=== PATIENT | female | born 1955 | race Caucasian/White ===

== ENCOUNTER 2019-08-03 14:11 | Emergency (ER) | payer BC ==
--- OUTSIDE RECORDS SUMMARY | 2019-08-03 14:16 | XMS REPORT | Summary of Care ---
:1955 Author Organization [facility] Address [address] [place] [address] Care Team Providers Name Role Phone Jesus Soria MD Primary Care Provider Reason for Referral Refer to Department Only (Routine) Status Reason Specialty Diagnoses / Referred By Referred To Procedures Contact Contact Pending Review Physical Therapy Diagnoses Right knee pain, unspecified chronicity Aba Ellis MD [address] [place] [address] Reason for Visit Reason Comments New Patient Right knee pain. DOI: 1 month. Patient states that she just moved wrong and where she works aggravates it and has been in pain ever since. Encounter Details Date Type Department Care Team Description 07/02/2019 Office Visit [facility] - Aba Ellis MD Right knee pain, [address] unspecified [address] [place] [address] chronicity ([place] [address] [place] [address] Dx) [place] [address] [phone] Allergies No Known Allergiesdocumented as of this encounter (statuses as of 07/02/2019) Medications Medication Sig Dispensed Refills Start Date End Date Status Multiple Vitamin Take by mouth. 0 Active (MULTI-VITAMIN DAILY PO) Calcium Take by mouth. 0 Active Carbonate-Vitamin D (CALCIUM + D PO) Misc Natural Products Take by mouth. 0 Active (DYJYIF-KCLOWGXBO-PBL COMPLEX PO) Magnesium Hydroxide Take by mouth. 0 Active (MAGNESIA PO) TURMERIC PO Take by mouth. 0 Active documented as of this encounter (statuses as of 07/02/2019) Active Problems Problem Noted Date Spinal stenosis of lumbar region with radiculopathy 01/28/2019 Shoulder pain, left 07/31/2013 documented as of this encounter (statuses as of 07/02/2019) Immunizations Name Administration Dates Next Due Depo Medrol (80mg) 01/09/2013 documented as of this encounter Social History Tobacco Use Types Packs/Day Years Used Date Never Smoker Smokeless Tobacco: Never Used Alcohol Use Drinks/Week oz/Week Comments Yes 2 Standard drinks or equivalent 1.7 Sex Assigned at Date Recorded Not on file Job Start Date Occupation Industry Not on file Not on file Not on file Travel History Travel Start Travel End No recent travel history available. documented as of this encounter Last Filed Vital Signs Vital Sign Reading Time Taken Comments Blood Pressure 117/77 07/02/2019 10:54 AM EDT Pulse 62 07/02/2019 10:54 AM EDT Temperature - - Respiratory Rate - - Oxygen Saturation - - Inhaled Oxygen Concentration - - Weight 46.3 kg (102 lb) 07/02/2019 10:54 AM EDT Height 156.2 cm (5' 1.5") 07/02/2019 10:54 AM EDT Body Mass Index 18.96 07/02/2019 10:54 AM EDT documented in this encounter Progress Notes Aba Ellis MD - 07/02/2019 10:40 AM EDTName: Divine Magaña : 1955 Date of Service: 07/02/2019 No chief complaint on file. 63-year-old woman presents with approximately 1 month history of right knee pain primarily about thepatella tendon insertion. She works at [employer] and is often on her feet all day. She does not have mechanical symptoms. Hurts after sitting when she first gets up. Goes to the gym frequently and does a lot of treadmill and elliptical which may be feeding into the symptoms. Also does some light weights including leg extensions. Ibuprofen helps somewhat. She had a left knee partial meniscectomy from Dr. Burgos some years ago. Physical exam shows a healthy-appearing woman in no acute distress. Alert and oriented. Right kneegrossly normal. Skin is normal. No redness or swelling. Full range of motion. Negative patellofemoral apprehension sign. Negative Mariangel sign. No instability. No patella tendon tenderness though this is the area she says where she does get pain. Neurovascular status intact right lower extremity. X-rays of the right knee appear negative. There may possibly be some chondrocalcinosis but I believe this is artifact. Impression: Patella tendinitis right knee. Plan: Physical therapy. She has 3 knee braces from her other knee but they seem to exacerbate the pain. Patella tendon strap. No diagnosis found. Author: Aba Ellis MD 07/02/2019 10:52 This record contains sections created with voice recognition software. It has been electronically signed. A reasonable attempt at proofreading has been made. Please call with any questions or corrections. documented in this encounter Plan of Treatment Name Type Priority Associated Diagnoses Order Schedule REFER TO PHYSICAL Referral Routine Right knee pain, Ordered: 07/02/2019 THERAPY / REHAB unspecified chronicity Health Maintenance Due Date Last Done Comments PAP SMEAR 1955 DEPRESSION SCREENING 1967 HIV SCREENING 11/18/1970 LIPID DISORDER SCREENING 11/18/1973 HEPATITIS C SCREENING 1995 MAMMOGRAM (SCREENING) 1995 COLONOSCOPY SCREENING 11/18/2005 ZOSTER IMMUNIZATION SERIES (1 of 2) 11/18/2005 INFLUENZA VACCINE (#1) 2019 HPV IMMUNIZATION SERIES Aged Out No longer eligible based on patient's age to complete this topic MENINGOCOCCAL VACCINE IMM Aged Out No longer eligible based on patient's age to complete this topic PNEUMOCOCCAL 0-64 YRS Aged Out No longer eligible based on patient's age to complete this topic documented as of this encounter Results Not on filedocumented in this encounter Visit Diagnoses Diagnosis Right knee pain, unspecified chronicity - Primary documented in this encounter Insurance Payer Benefit Plan / Subscriber ID Effective Dates Phone Address Type Group [employer] xxxxxxxxxxxx 2018-Present [employer] (Home) [place], [place] [phone] (Work) documented as of this encounter
[2019-08-03 14:26] VITALS: BP 108/55
--- NOTE | 2019-08-03 14:42 | UC ---
Skin Complaint HPI - HPI Summary HPI Summary: Pt presents with c/o painful, burning rash to left side groin and left side low back X 5 days. Pt has "nerve damage" to left upper leg and has been applying warm compress nightly with warming rice pack to left side groin. - History of Current Complaint Chief Complaint: UCSkin Time Seen by Provider: 08/03/19 14:28 Stated Complaint: RASH Hx Obtained From: Patient ?: No Onset/Duration: Gradual Onset, Lasting Days Skin Exposure Onset/Duration: Days Ago Timing: Constant Onset Severity: Moderate Current Severity: Moderate Pain Intensity: 5 Location: Discrete - left inner groin, and left low back Character: Redness, Raised, Painful Aggravating Factor(s): Touch Alleviating Factor(s): Nothing Associated Signs & Symptoms: Positive: Rash, Tenderness - Allergy/Home Medications Allergies/Adverse Reactions: Allergies Allergy/AdvReac Type Severity Reaction Status Date / Time No Known Allergies Allergy Verified 08/03/19 14:23 Home Medications: Home Medications Antiarthritic Combination No.2 [Glucosamine-Chondroitin] 1 tab PO DAILY [History Confirmed 08/03/19] Multivitamins/Minerals TAB* [Theragran/minerals TAB*] 1 tab PO DAILY 08/03/19 [ History Confirmed 08/03/19] Turmeric Root Extract [Turmeric] 500 mg PO DAILY 08/03/19 [History Confirmed ] PMH/Surg Hx/FS Hx/Imm Hx Previously Healthy: Yes - Surgical History Surgical History: Yes Surgery Procedure, Year, and Place: TUBAL LIGATION; Lt KNEE -ARTHROSCOPIC REPAIR ; VARICOSE VEIN SURGERY; TONSILECTOMY - Family History Known Family History: Positive: Cardiac Disease - Social History Occupation: Employed Full-time Lives: With Family Alcohol Use: Rare Substance Use Type: None Smoking Status (MU): Never Smoked Tobacco Have You Smoked in the Last Year: No - Immunization History Vaccination Up to Date: Yes Review of Systems All Other Systems Reviewed And Are Negative: Yes Constitutional: Positive: Negative Skin: Positive: Rash Eyes: Positive: Negative ENT: Positive: Negative Respiratory: Positive: Negative Cardiovascular: Positive: Negative Gastrointestinal: Positive: Negative Genitourinary: Positive: Negative Motor: Positive: Negative Neurovascular: Positive: Negative Musculoskeletal: Positive: Myalgia Neurological: Positive: Negative Psychological: Positive: Negative Is Patient Immunocompromised?: No Physical Exam Triage Information Reviewed: Yes Appearance: Pain Distress, Thin Vital Signs: Initial Vital Signs Temp 100.8 F 08/03/19 14:20 Pulse 81 08/03/19 14:20 Resp 15 08/03/19 14:20 BP 108/55 08/03/19 14:20 Pulse Ox 98 08/03/19 14:20 Vital Signs Reviewed: Yes Eye Exam: Normal ENT Exam: Normal ENT: Positive: Hearing grossly normal Dental Exam: Normal Neck exam: Normal Respiratory: Positive: No respiratory distress Musculoskeletal Exam: Normal Musculoskeletal: Positive: Strength Intact, ROM Intact Neurological Exam: Normal Neurological: Positive: Alert Psychological Exam: Normal Skin: Positive: Rashes - vessicular rash, erythematous left groin and left lower back. Course/Dx - Differential Diagnoses - Skin Complaint Differential Diagnoses: Cellulitis, Contact Dermatitis, Varicella Zoster - Diagnoses Provider Diagnosis: Shingles Discharge ED - Sign-Out/Discharge Documenting (check all that apply): Patient Departure All imaging exams completed and their final reports reviewed: No Studies - Discharge Plan Condition: Stable Disposition: HOME Prescriptions: predniSONE TAB* [Deltasone 10 MG TAB*] 30 mg PO DAILY #12 tab ValACYclovir (*) [Valtrex 1 GM(*)] 1 gm PO Q12H #14 tab Patient Education Materials: Shingles (ED) Referrals: Nadine Griffin PA [Primary Care Provider] - If Needed - Billing Disposition and Condition Condition: STABLE Disposition: Home
== END 2019-08-03 14:50 | disposition home or self-care (01) ==
LOC: UCCORT 14:11
DX: B02.9 Zoster without complications (principal)
CPT/HCPCS: 99212; G0463